=== PATIENT | female | born 1980 | race Caucasian/White ===

== ENCOUNTER 2021-10-13 13:33 | Emergency (ER) | payer OTHER ==
[2021-10-13 14:46] LABS: HEMOGLOBIN 12.8 gm/dl (12.3-15.3); RED BLOOD COUNT 4.27 M/UL (4.00-5.10); WHITE BLOOD COUNT 12.2 K/UL (4.5-11.0)
[2021-10-13 15:33] LABS: BUN/CREATININE RATIO 29 (0-10)
[2021-10-13] MEDS ORDERED: DELSYM30 MG/5 ML PO (17:14)
[2021-10-13] MEDS ORDERED: IBUPROFEN600 MG PO (17:14)
[2021-10-13] MEDS ORDERED: ZITHROMAX250 MG PO (17:14)
[2021-10-13] MEDS ORDERED: FLONASE 0.05% N16 GM (17:14)
== END 2021-10-13 17:20 | disposition home or self-care (01) ==
LOC: ER1 13:33
PROVIDERS: Physician Assistant Medical
DX: J06.9 Acute upper respiratory infection, unspecified (principal); E11.9 Type 2 diabetes mellitus without complications; Z79.84 Long term (current) use of oral hypoglycemic drugs; J44.9 Chronic obstructive pulmonary disease, unspecified; F17.210 Nicotine dependence, cigarettes, uncomplicated; Z88.0 Allergy status to penicillin; Z20.822 Contact with and (suspected) exposure to COVID-19
CPT/HCPCS: 71045; 80053; 82550; 82553; 84484; 85025; 93005; 99285; U0002